=== PATIENT | male | born 1955 | race Caucasian/White ===

== ENCOUNTER 2019-07-03 08:19 | Emergency (ER) | payer BC, OTHER ==
[~2019-07-03] VITALS: Ht 185.4 cm; Wt 93.0 kg
[2019-07-03] MEDS ORDERED: DILTIAZEM 5 MG/ML, 5ML ONE (08:44)
--- NOTE | 2019-07-03 08:53 | NUR ---
PT HERE WITH C/O CHEST TIGHTNESS, SOB, AND PALPITATIONS. STATES HE CHECKED HIS IWATCH AND HIS RHYTHM WAS INTERPRETED AFIB AT 0730 THIS AM. PT DENIES HX OF CARDIAC ISSUES, ONLY HX HTN. PT TO NIBP, CONT PULSE OX, CARD MONITOR/\, CARD MONTIOR SHOWING AFIB 120-160. MD UPDATED, PIV INITIATED, PT MEDICATED PER MD ORDER.
[2019-07-03] MEDS ORDERED: APIXABAN 5 MG TABLET PO ONE (09:00)
[2019-07-03] MEDS ORDERED: APIXABAN 5 MG TABLET ONE (09:00)
[2019-07-03] MEDS ORDERED: DILTIAZEM 5 MG/ML, 5ML IV ONE (09:00)
[2019-07-03 09:09] LABS: BASOPHILS # (AUTO) 0.03 x10^3/uL (0-0.1); BASOPHILS % (AUTO) 0 % (0-1); EOSINOPHILS # (AUTO) 0.11 x10^3/uL (0-0.4); EOSINOPHILS % (AUTO) 2 % (1-7); LYMPHOCYTES # (AUTO) 1.65 x10^3/uL (1-3.4); LYMPHOCYTES % (AUTO) 23 % (22-44); MD NO; MEAN CORPUSCULAR HEMOGLOBIN 29.2 pg (27.5-34.5); MEAN CORPUSCULAR HGB CONC 33.4 g/dL (33.2-36.2); MEAN CORPUSCULAR VOLUME 87.4 fL (81-97); MEAN PLATELET VOLUME 8.9 fL (7.4-10.4); MONOCYTES % (AUTO) 10 % (2-9); NEUTROPHILS % (AUTO) 66 % (42-75); PLATELET COUNT 268 x10^3/uL (130-400); RED BLOOD COUNT 6.25 x10^6/uL (4.38-5.82); RED CELL DISTRIBUTION WIDTH 13.5 % (9.4-14.8)
[2019-07-03 09:20] LABS: INTERNATIONAL NORMALIZED RATIO 0.98 (0.93-1.1); PROTHROMBIN TIME 10.3 Seconds (9.6-11.5)
[2019-07-03 09:21] LABS: ALANINE AMINOTRANSFERASE 42 U/L (12-78); ALBUMIN 4.1 g/dL (3.4-5.0); ANION GAP 6 mmol/L (5-15); CHLORIDE 109 mmol/L (98-107); CREATININE 1.14 mg/dL (0.7-1.3); T4 (THYROXINE) 6.2 mcg/dL (4.5-12.1)
--- NOTE | 2019-07-03 09:22 | NUR ---
PT RESTING ON GURNEY, HR REMAINS 90S S/P TAPE TRANSFERRER, NO NEEDS AT THIS TIME
[2019-07-03 09:26] LABS: ALKALINE PHOSPHATASE 87 U/L (45-117); BILIRUBIN,TOTAL 0.7 mg/dL (0.2-1.0); TOTAL PROTEIN 7.8 g/dL (6.4-8.2); TROPONIN I < 0.015 ng/mL (0.000-0.045)
[2019-07-03] MEDS ORDERED: SODIUM CHLORIDE 0.9%, 500ML IVBOLUS ONE (09:30)
--- NOTE | 2019-07-03 10:20 | NUR ---
PT AGREEABLE TO HAVE CARDIOVERSION, CONSENT SIGNED. WILL PREPARE PT FOR PROCEDURE
[2019-07-03] MEDS ORDERED: PROPOFOL 10 MG/ML, 20ML IVPush ONE (10:30)
[2019-07-03] MEDS ORDERED: PROPOFOL 10 MG/ML, 20ML ONE (10:39)
--- NOTE | 2019-07-03 11:15 | NUR ---
CARDIOVERSION COMPLETEDS: TIME OUT 1050 PROPOFOL 50MG BOLUS 1051 GIVEN BY ERMD PROPOFOL 20MG BOLUS 1052 GIVEN BY ERMD SHOCK TIME 1053 WITH 150 JOULES S/P PT SR 70S END TIME 1056 SEE VS TREND REPORT IN PAPER CHART PT NOW AWAKE AND TALKING WITH FAMILY AT BEDSIDE, NAD, VSS
[2019-07-03 11:41] VITALS: BP 101/75
--- NOTE | 2019-07-03 11:42 | NUR ---
BREAK RN: PT VSS, DENIES PAIN. NSR ON MONITOR, PT RPTS NO MEMORY OF PROCEDURE.
--- NOTE | 2019-07-03 12:43 | NUR ---
Patient/Caregiver given discharge instructions and they have confirmed that they understand the instructions. Patient ambulatory with steady gait.
== END 2019-07-03 12:46 | disposition home or self-care (01) ==
LOC: ED 08:58
DX: I48.91 Unspecified atrial fibrillation (principal); R42 Dizziness and giddiness; I10 Essential (primary) hypertension
CPT/HCPCS: 36415; 71045; 80053; 83735; 84436; 84443; 84484; 85025; 85610; 85730; 92960; 93005; 96361; 96374; 99285; J2704; J7040

== ENCOUNTER → 2019-08-06 | Outpatient (CLI) | payer BC | END | disposition home or self-care (01) | LOC: CVU 08:36 | PROVIDERS: ATTEND Internal Medicine Cardiovascular Disease | DX: I35.8 Other nonrheumatic aortic valve disorders (principal); I48.0 Paroxysmal atrial fibrillation; R42 Dizziness and giddiness; I10 Essential (primary) hypertension | CPT/HCPCS: 93306 ==

== ENCOUNTER → 2020-04-19 | Outpatient (CLI) | payer BC, OTHER | END | disposition home or self-care (01) | LOC: CFH 14:12 | PROVIDERS: ATTEND Internal Medicine Cardiovascular Disease | DX: Z13.6 Encounter for screening for cardiovascular disorders (principal); E78.00 Pure hypercholesterolemia, unspecified; J92.9 Pleural plaque without asbestos; J84.10 Pulmonary fibrosis, unspecified | CPT/HCPCS: 75571 ==